=== PATIENT | female | born 1985 | race Caucasian/White ===

== ENCOUNTER 2017-01-02 18:13 | Inpatient (IN) | payer BC ==
[2017-01-02] VITALS (18 sets, daily range): BP systolic 95–138; BP diastolic 56–77; PULSE 78–103; TEMP 97.6–98.5
[~2017-01-02] VITALS: Ht 177.8 cm; Wt 112.3 kg
[~2017-01-02 18:13] MED LIST: MOTRIN 800800 MG/TAB PO; PRENATAL1 TA7 PO
[2017-01-02 19:55] LABS: BASO % 0.2 % (0.0-2.0); EOS # 0.1 (0.0-0.7); EOS % 0.4 % (0-4.0); GRAN # 9.1 (1.4-6.5); GRAN % 71.1 % (42.2-75.2); LYMPH # 2.3 (1.2-3.4); LYMPH % 18.2 % (20.0-51.0); MEAN CELL VOLUME 87 fl (80.0-100.0); MEAN CORPUSCULAR HGB CONC 34 g/dl (33.0-37.0); MEAN PLATELET VOLUME 9.9 fl (7.4-10.4); MONO # 1.2 (0.1-0.6); MONO % 9.6 % (1.7-9.3); PLATELET COUNT 294 K/mm3 (130-400); RED BLOOD COUNT 4.04 M/mm3 (4.10-5.30); REDCELL DISTRIBUTION WIDTH-CV 14.3 % (11.5-14.5); WHITE BLOOD COUNT 12.8 K/mm3 (4.8-10.8)
[2017-01-02 19:57] LABS: HEMATOCRIT 35.2 % (37.0-47.0); HEMOGLOBIN 11.8 g/dl (12.5-16.0); MEAN CORPUSCULAR HEMOGLOBIN 29 pg (27.0-31.0)
[2017-01-03 00:05] VITALS: BP 104/50; PULSE 98; TEMP 97.7
[2017-01-03 03:20] VITALS: BP 113/66; PULSE 77; TEMP 98.3
[2017-01-03 07:19] VITALS: BP 110/64; PULSE 76; TEMP 98.2
[2017-01-03 16:19] VITALS: BP 102/64; PULSE 78; TEMP 98.3
[2017-01-03 23:15] VITALS: BP 111/55; PULSE 72; TEMP 97.8
[2017-01-04 08:10] VITALS: BP 127/59; PULSE 83; TEMP 97.5
[2017-01-04 15:46] VITALS: BP 123/58; PULSE 65; TEMP 98
[2017-01-04 18:45] VITALS: BP 127/74; PULSE 69; TEMP 97.7
== END 2017-01-04 19:05 | disposition home or self-care (01) | DRG 775 ==
LOC: LDRO 18:13 → OB 18:53 → LDR 18:53 → OB 01-03
PROVIDERS: Obstetrics & Gynecology
PROC: 10E0XZZ Delivery of Products of Conception, External Approach (ICD-10-PCS; principal; 2017-01-02)
PROC: 0HQ9XZZ Repair Perineum Skin, External Approach (ICD-10-PCS; 2017-01-02)
DX: O99.824 Streptococcus B carrier state complicating childbirth (principal); O76 Abnormality in fetal heart rate and rhythm complicating labor and delivery; O70.0 First degree perineal laceration during delivery; Z3A.38 38 weeks gestation of pregnancy; Z37.0 Single live birth
CPT/HCPCS: J2540; J2590; J2795; J7120

== ENCOUNTER → 2019-11-26 | Outpatient (CLI) | payer BC | LOC: ZCOL.LAB 16:20 | DX: L05.91 Pilonidal cyst without abscess (principal) ==

== ENCOUNTER → 2020-09-21 | Outpatient (CLI) | payer BC | LOC: COL.RAD 08:34 | DX: H81.12 Benign paroxysmal vertigo, left ear (principal); R22.0 Localized swelling, mass and lump, head | CPT/HCPCS: A9585 ==